=== PATIENT | male | born 1985 | race African-American/Black ===

== ENCOUNTER 2021-05-05 15:41 | Inpatient (IN) | payer OTHER ==
[~2021-05-05] VITALS: Ht 170.2 cm; Wt 72.6 kg
[2021-05-05] MEDS ORDERED: SODIUM CHLORIDE 0.9% 1,000 ML IV ONE (16:00)
[2021-05-05 16:31] LABS: BASOPHILS % 0.3 % (0.0-2.0); EOSINOPHILS % 0.1 % (0.0-5.0); HEMOGLOBIN. 16.5 g/dL (14.0-18.0); LYMPHOCYTES % 12.5 % (20.0-50.0); MEAN CORPUSCULAR HEMOGLOBIN 30.6 pg (28.0-32.0); MEAN CORPUSCULAR VOLUME 89.2 fL (80.0-94.0); MEAN PLATELET VOLUME 7.9 fl (7.4-10.4); MONOCYTES % 11.3 % (2.0-8.0); NEUTROPHILS % 75.8 % (40.0-76.0); PLATELET 250 x1000/uL (130-400); RED BLOOD CELL COUNT 5.38 mill/uL (4.7-6.1); RED CELL DISTRIBUTION WIDTH 12.8 % (11.6-14.6)
[2021-05-05 16:33] LABS: CHLORIDE 108 mEq/L (98-107)
[2021-05-05 16:39] LABS: PROTHROMBIN TIME 10.9 sec (9.6-11.0)
[2021-05-05] MEDS ORDERED: SODIUM CHLORIDE 0.9% 1000ML BAG (SEPSIS BOLUS) IV ONE (16:45)
[2021-05-05 16:46] LABS: CLARITY URINE CLEAR (CLEAR); COLOR URINE YELLOW (YELLOW); KETONES URINE TRACE (NEGATIVE); LEUKOCYTE ESTERASE URINE NEGATIVE (NEGATIVE); NITRITE URINE NEGATIVE (NEGATIVE); OCCULT BLOOD URINE TRACE (NEGATIVE); PH URINE 5.5 (4.5-8.0); PROTEIN URINE TRACE (NEGATIVE); SPECIFIC GRAVITY URINE 1.014 (1.005-1.030); UROBILINOGEN URINE 0.2 E.U./dL (0.2-1.0)
[2021-05-05] MEDS ORDERED: LEVOFLOXACIN 500MG PREMIX 100 ML IV ONE (17:15)
[2021-05-05] MEDS ORDERED: METRONIDAZOLE 500 MG PREMIX 100 ML IV ONE (17:15)
[2021-05-05] MEDS ORDERED: DIPHENHYDRAMINE 50MG/ML VIAL IV PRN (22:15)
[2021-05-05] MEDS ORDERED: ACETAMINOPHEN 325MG TABLET PO PRN ×2 (22:15)
[2021-05-05] MEDS ORDERED: ONDANSETRON HCL 4MG/2ML INJ IV PRN (22:15)
[2021-05-05] MEDS ORDERED: CEFEPIME 1,000 MG in DEXTROSE 5% WATER 50 ML IV SCH (22:30)
[2021-05-05] MEDS: DEXT 5%/0.9% NACL 1,000 ML IV SCH (22:31)
[2021-05-06 02:51] VITALS: BP 105/66
[2021-05-06 06:39] LABS: CHLORIDE 112 mEq/L (98-107)
[2021-05-06 06:44] LABS: PHOSPHORUS 2.5 mg/dL (2.5-4.9)
[2021-05-06 06:47] LABS: HEMATOCRIT. 38.9 % (42.0-52.0); HEMOGLOBIN. 13.4 g/dL (14.0-18.0); MEAN CORPUSCULAR HEMOGLOBIN 30.8 pg (28.0-32.0); MEAN CORPUSCULAR VOLUME 89.8 fL (80.0-94.0); MEAN PLATELET VOLUME 8.3 fl (7.4-10.4); PLATELET 216 x1000/uL (130-400); RED BLOOD CELL COUNT 4.33 mill/uL (4.7-6.1); RED CELL DISTRIBUTION WIDTH 13.1 % (11.6-14.6)
[2021-05-06] MEDS: DEXT 5%/0.9% NACL 1,000 ML IV SCH ×2 (06:55→14:30)
[2021-05-06] MEDS ORDERED: BICT1TAB PO (07:23)
[2021-05-06 08:00] VITALS: BP 100/66
[2021-05-06] MEDS ORDERED: CEFEPIME 1,000 MG in DEXTROSE 5% WATER 50 ML IV SCH (11:00)
[2021-05-06 12:00] VITALS: BP 92/54
[2021-05-06 15:18] LABS: PLATELET ESTIMATE NORMAL
[2021-05-06 16:00] VITALS: BP 107/61
[2021-05-06 16:20] VITALS: BP 112/70
== END 2021-05-06 18:10 | disposition home or self-care (01) | DRG 392 ==
LOC: ER 15:41 → MICUSO 17:17 → EDBEDREQ 17:21 → EDBEDREQTM 17:21 → 6EST 05-06 01:23
PROVIDERS: ADMIT Internal Medicine; ATTEND Internal Medicine
DX: K52.9 Noninfective gastroenteritis and colitis, unspecified (principal); N17.9 Acute kidney failure, unspecified; Z20.822 Contact with and (suspected) exposure to COVID-19; Z90.49 Acquired absence of other specified parts of digestive tract
CPT/HCPCS: 36415; 71045; 74176; 80053; 81003; 83605; 83735; 84100; 85025; 87426; 99285; J0692; J1956; J3490; J7030; J7042; J7060